=== PATIENT | female | born 1995 | race Caucasian/White ===

== ENCOUNTER 2016-10-14 19:25 | Emergency (ER) | payer OTHER ==
[~2016-10-14] VITALS: Ht 162.6 cm; Wt 54.4 kg
[~2016-10-14 19:25] MED LIST: ACET-704 PO; IBUP-1060 PO; NITR100C62 PO; PHEN-318 PO
[2016-10-14 19:31] VITALS: BP 109/66
[2016-10-14 20:10] LABS: BILIRUBIN,URINE NEGATIVE (NEG); GLUCOSE,URINE NEGATIVE (NEG); NITRITE,URINE NEGATIVE (NEG); PH,URINE 7.5; PROTEIN,URINE 30 mg/dL (NEG-TRACE)
[2016-10-14 20:20] LABS: BACTERIA,URINE FEW /HPF (0-FEW); SQUAMOUS EPITHELIAL CELL,UR MOD /LPF
--- NOTE | 2016-10-15 00:55 | ED.ADGEN ---
Past Medical History Past Medical History: No Pertinent History, UTI Past Surgical History: No Surgical History Alcohol Use: None Drug Use: None Adult General Chief Complaint Chief Complaint: FLANK PAIN HPI HPI Patient is a 20 year old woman, history of UTI, who presents to the emergency department with a complaint of several days of burning with urination and vaginal discharge vaginal itching. Patient states she is concerned that she has a recurrent urinary tract infection, states she has also had bacterial vaginosis in the past. She denies any possibility of STI exposures, any possibility of . Denies any abdominal pain, any weakness numbness or tingling, any injuries, any chest pain or shortness breath, any fevers or chills. Review of Systems Review of Systems Constitutional: Denies fever or chills. [] Eyes: Denies change in visual acuity. [] HENT: Denies nasal congestion or sore throat. [] Respiratory: Denies cough or shortness of breath. [] Cardiovascular: Denies chest pain or edema. [] GI: Denies abdominal pain, nausea, vomiting, bloody stools or diarrhea. [] : Complaining of dysuria over the past several days, also white vaginal discharge and vaginal itching. Musculoskeletal: Denies back pain or joint pain. [] Integument: Denies rash. [] Neurologic: Denies headache, focal weakness or sensory changes. [] Endocrine: Denies polyuria or polydipsia. [] Lymphatic: Denies swollen glands. [] Psychiatric: Denies depression or anxiety. [] Allergies Allergies Allergies Coded Allergies Type Severity Reaction Last Updated Verified No Known Drug Allergies 06/07/16 No Physical Exam Physical Exam Constitutional: Well developed, well nourished, no acute distress, non-toxic appearance. [] HENT: Normocephalic, atraumatic, bilateral external ears normal, oropharynx moist, no oral exudates, nose normal. [] Eyes: PERRLA, EOMI, conjunctiva normal, no discharge. [] Neck: Normal range of motion, no tenderness, supple, no stridor. [] Cardiovascular:Heart rate regular rhythm, no murmur, S1, S2, no rubs or gallops , no chest wall crepitus or tenderness [] Lungs & Thorax: Bilateral breath sounds clear to auscultation no wheezing, rhonchi, rales. No chest or crepitus or tenderness. [] Abdomen: Bowel sounds normal, soft, no tenderness, no rebound, rigidity, no guarding, no masses, no pulsatile masses. [] Skin: Warm, dry, no erythema, no rash. [] Back: No tenderness, no CVA tenderness. [] Extremities: No tenderness, no cyanosis, no clubbing, ROM intact, no edema. [] Neurologic: Alert and oriented X 3, normal motor function, normal sensory function, no focal deficits noted. [] Psychologic: Affect normal, judgement normal, mood normal. [] Current Patient Data Vital Signs Vital Signs Date Time Temp Pulse Resp B/P Pulse Ox O2 Delivery O2 Flow Rate FiO2 10/14/16 19:31 98 83 18 109/66 98 Room Air 98.0 Lab Values Laboratory Tests Test 10/14/16 18:48 10/14/16 19:26 POC Urine HCG, Qualitative Hcg negative (Negative) Urine Collection Type Unknown Urine Color Yellow Urine Clarity Clear Urine pH 7.5 Urine Specific [place] 1.020 Urine Protein 30mg/dL (NEG-TRACE) Urine Glucose (UA) Negativemg/dL (NEG) Urine Ketones (Stick) Negativemg/dL (NEG) Urine Blood Small (NEG) Urine Nitrite Negative (NEG) Urine Bilirubin Negative (NEG) Urine Urobilinogen Dipstick 2.0mg/dL (0.2 mg/dL) Urine Leukocyte Esterase Negative (NEG) Urine RBC 11-20/HPF (0-2) Urine WBC 1-4/HPF (0-4) Urine Squamous Epithelial Cells Mod/LPF Urine Bacteria Few/HPF (0-FEW) Urine Mucus Mod/LPF EKG EKG [] Radiology/Procedures Radiology/Procedures [] Course & Med Decision Making Course & Med Decision Making Pertinent Labs and Imaging studies reviewed. (See chart for details) Urine was collected from the patient to to test for status and infection. Patient instructed to prepare for pelvic examination. However, when I returned to the room to perform the pelvic examination, the patient had eloped. Urinalysis revealed no significant evidence of infection. Dragon Disclaimer Dragon Disclaimer This electronic medical record was generated, in whole or in part, using a voice recognition dictation system. Departure Impression: Primary Impression: Dysuria Additional Impression: History of elopement from health care facility Disposition: AGAINST MEDICAL ADVICE Condition: STABLE Problem Qualifiers THA OLVERA DO October 15, 2016 00:55
== END 2016-10-14 21:18 | disposition left against medical advice (07) ==
LOC: ER 19:25
DX: R30.0 Dysuria (principal); N89.8 Other specified noninflammatory disorders of vagina; Z87.440 Personal history of urinary (tract) infections
CPT/HCPCS: 81001; 81025; 99283

== ENCOUNTER 2017-09-03 18:10 | Emergency (ER) | payer OTHER ==
[2017-09-03] MEDS ORDERED: 0.9 % SODIUM CHLORIDE 10 ML DISP.SYRIN. IV (20:00)
[2017-09-03 20:09] LABS: ADD MAN DIFF? NO
[2017-09-03 20:13] LABS: BASO # 0.1 x10^3/uL (0.0-0.2); BASO % 1 % (0-3); EOS # 0.1 x10^3/uL (0.0-0.7); EOS % 1 % (0-3); HEMATOCRIT 39.8 % (36.0-47.0); HEMOGLOBIN 13.5 g/dL (12.0-15.5); LYMPH # 2.3 x10^3/uL (1.0-4.8); LYMPH % 20 % (24-48); MEAN CORPUSCULAR HEMOGLOBIN 31 pg (25-35); MEAN CORPUSCULAR HGB CONC 34 g/dL (31-37); MEAN CORPUSCULAR VOLUME 93 fL (79-100); MONO # 0.7 x10^3/uL (0.0-1.1); MONO % 6 % (0-9); NEUT # 8.4 x10^3uL (1.8-7.7); NEUT % 73 % (31-73); PLATELET COUNT 232 x10^3/uL (140-400); RED BLOOD COUNT 4.28 x10^6/uL (3.50-5.40); RED CELL DISTRIBUTION WIDTH 12.5 % (11.5-14.5); WHITE BLOOD COUNT 11.6 x10^3/uL (4.0-11.0)
[2017-09-03 20:20] LABS: ANION GAP 11 (6-14); BLOOD UREA NITROGEN 14 mg/dL (7-20); CALCIUM 8.5 mg/dL (8.5-10.1); CARBON DIOXIDE 29 mmol/L (21-32); CHLORIDE 105 mmol/L (98-107); CREATININE 0.6 mg/dL (0.6-1.0); GFR 123.9; GLUCOSE 99 mg/dL (70-99); POTASSIUM 3.5 mmol/L (3.5-5.1); SODIUM 145 mmol/L (136-145)
[2017-09-03 20:26] LABS: ALK PHOS 81 U/L (46-116); ALT (SGPT) 18 U/L (14-59); AST (SGOT) 11 U/L (15-37); DIRECT BILIRUBIN < 0.1 mg/dL (0.0-0.2); LIPASE 118 U/L (73-393); TOTAL BILIRUBIN 0.4 mg/dL (0.2-1.0); TOTAL PROTEIN 7.3 g/dL (6.4-8.2)
[2017-09-03 20:27] LABS: BILIRUBIN,URINE SMALL (NEG); CLARITY,URINE CLEAR; COLOR,URINE RED; GLUCOSE,URINE NEGATIVE (NEG); NITRITE,URINE POSITIVE (NEG); PROTEIN,URINE 100 mg/dL (NEG-TRACE)
[2017-09-03] MEDS: fentaNYL PF VIAL 100 MCG/2 ML VIAL IV (20:43)
[2017-09-03] MEDS: KETOROLAC 30 MG/ML INJ. IV (20:44)
[2017-09-03] MEDS: IV NORMAL SALINE 1000ML BAG 1,000 ML IV (20:44)
[2017-09-03 21:16] LABS: SQUAMOUS EPITHELIAL CELL,UR MOD /LPF
[2017-09-03 21:19] LABS: RBC,URINE 0 /HPF (0-2)
[2017-09-03 21:20] LABS: BACTERIA,URINE 0 /HPF (0-FEW)
== END 2017-09-03 21:51 | disposition home or self-care (01) ==
LOC: ER 18:10
DX: N39.0 Urinary tract infection, site not specified (principal)
CPT/HCPCS: 36415; 80048; 80076; 81001; 83690; 85025; 87086; 96361; 96374; 96375; 99284-25; J1885; J3010; J7030

== ENCOUNTER 2017-11-17 15:43 | Emergency (ER) | payer OTHER | END 2017-11-17 16:14 | disposition home or self-care (01) | LOC: ER 15:43 | DX: B35.4 Tinea corporis (principal) | CPT/HCPCS: 99283 ==

== ENCOUNTER 2019-03-14 15:32 | Emergency (ER) | payer MEDICAID, OTHER ==
[~2019-03-14] VITALS: Ht 162.6 cm; Wt 64.4 kg
[~2019-03-14 15:32] MED LIST changes: +HYDR-2761 PO; +NAPR-683 PO; +TRIA15CR TP
[2019-03-14 16:09] LABS: BILIRUBIN,URINE NEGATIVE (NEG); CLARITY,URINE CLEAR; COLOR,URINE YELLOW; NITRITE,URINE NEGATIVE (NEG); PROTEIN,URINE NEGATIVE (NEG-TRACE)
[2019-03-14 16:15] LABS: BASO % 0 % (0-3); EOS % 1 % (0-3); HEMATOCRIT 31.6 % (36.0-47.0); HEMOGLOBIN 10.9 g/dL (12.0-15.5); LYMPH % 22 % (24-48); MEAN CORPUSCULAR HEMOGLOBIN 32 pg (25-35); MEAN CORPUSCULAR HGB CONC 35 g/dL (31-37); MEAN CORPUSCULAR VOLUME 94 fL (79-100); MONO # 0.7 x10^3/uL (0.0-1.1); MONO % 8 % (0-9); NEUT # 6.6 x10^3/uL (1.8-7.7); NEUT % 70 % (31-73); PLATELET COUNT 174 x10^3/uL (140-400); RED BLOOD COUNT 3.38 x10^6/uL (3.50-5.40); RED CELL DISTRIBUTION WIDTH 13.4 % (11.5-14.5); WHITE BLOOD COUNT 9.5 x10^3/uL (4.0-11.0)
[2019-03-14 16:17] LABS: SQUAMOUS EPITHELIAL CELL,UR MOD /LPF
[2019-03-14 16:18] LABS: BACTERIA,URINE MODERATE /HPF (0-FEW)
[2019-03-14 16:22] LABS: CALCIUM 8.6 mg/dL (8.5-10.1); CREATININE 0.5 mg/dL (0.6-1.0); GFR 150.3; POTASSIUM 3.5 mmol/L (3.5-5.1)
--- NOTE | 2019-03-14 16:58 | RAD ---
EXAM: Obstetrics sonogram. HISTORY: Vaginal bleeding. TECHNIQUE: Sonographic imaging of the gravid uterus was performed. COMPARISON: None. FINDINGS: There is a single intrauterine fetus in cephalic presentation with a heart rate of 145 beats per minute. The cervix is closed and measures 5.7 cm in length. There is a grade 1 anterolisthesis and without evidence of placenta previa. The amniotic fluid index is normal. There is normal body motion. The biparietal diameter is 3.71 cm, corresponding with 17 weeks and 2 days. The heads are currently is 14.15 cm, corresponding to 17 weeks and 3 days. The abdominal circumference is 11.55 cm, corresponding with 17 weeks and 2 days. The femoral length is 2.44 cm, corresponding with 17 weeks and 3 days. The estimated gestational age patient combined ultrasound measurements is 17 weeks and 3 days and the estimated due date is 08/19/2019. The estimated weight is 191 g. IMPRESSION: 1. Single intrauterine fetus with an estimated gestational age based on ultrasound measurements of 17 weeks and 3 days. There is a normal heart rate and normal body motion. 2. Note is made that a formal anatomy survey at approximately 18-20 weeks gestational age is recommended. The anatomy is not formally assessed on this exam. Electronically signed by: Annamaria Rdz MD (03/14/2019 4:55 PM) [facility]
--- NOTE | 2019-03-14 17:20 | PHYS DOC ---
Past Medical History Past Medical History: No Pertinent History, UTI Past Surgical History: No Surgical History Alcohol Use: None Drug Use: None Adult General Chief Complaint Chief Complaint: VAGINAL BLEEDING HPI HPI Patient is a 23 year old female who presents to the ER with complaints of vaginal bleeding that began today. Pt states she is currently 17 weeks , G3, P2, A0. Her EDC is 08/27/19. She reports that she has only used one pad since the onset of the bleeding. She denies any dysuria or increased urinary frequency, she denies any irregular vaginal discharge prior to the onset of the bleeding. She currently denies any pain. Review of Systems Review of Systems Constitutional: Denies fever or chills [] Eyes: Denies change in visual acuity, redness, or eye pain [] HENT: Denies nasal congestion or sore throat [] Respiratory: Denies cough or shortness of breath [] Cardiovascular: No additional information not addressed in HPI [] GI: Denies abdominal pain, nausea, vomiting, or diarrhea [] : see HPI Musculoskeletal: Denies back pain or joint pain [] Integument: Denies rash or skin lesions [] Neurologic: Denies headache Endocrine: Denies polyuria or polydipsia [] Complete systems were reviewed and found to be within normal limits, except as documented in this note. Allergies Allergies Allergies Coded Allergies Type Severity Reaction Last Updated Verified No Known Drug Allergies 06/07/16 No Physical Exam Physical Exam Constitutional: Well developed, well nourished, no acute distress, non-toxic appearance. [] HENT: Normocephalic, atraumatic, bilateral external ears normal, nose normal. [] Eyes: PERRLA, EOMI, conjunctiva normal, no discharge. [] Neck: Normal range of motion, no stridor. [] Cardiovascular:Heart rate regular rhythm, no murmur [] Lungs & Thorax: Bilateral breath sounds clear to auscultation [] Abdomen: Bowel sounds normal, soft, no tenderness, no masses, no pulsatile masses. [] Skin: Warm, dry, no erythema, no rash. [] Back: No tenderness Extremities: No cyanosis, no clubbing, ROM intact, no edema. [] Neurologic: Alert and oriented X 3, no focal deficits noted. [] Psychologic: Affect normal, judgement normal, mood normal. [] Current Patient Data Vital Signs Vital Signs Date Time Temp Pulse Resp B/P (MAP) Pulse Ox O2 Delivery O2 Flow Rate FiO2 03/14/19 15:45 98.1 79 17 112/66 (81) 98 Room Air 98.1 Lab Values Laboratory Tests Test 03/14/19 15:39 03/14/19 16:04 Urine Collection Type Unknown Urine Color Yellow Urine Clarity Clear Urine pH 6.0 Urine Specific [place] 1.020 Urine Protein Negative mg/dL (NEG-TRACE) Urine Glucose (UA) Negative mg/dL (NEG) Urine Ketones (Stick) Negative mg/dL (NEG) Urine Blood Large (NEG) Urine Nitrite Negative (NEG) Urine Bilirubin Negative (NEG) Urine Urobilinogen Dipstick 1.0 mg/dL (0.2 mg/dL) Urine Leukocyte Esterase Moderate (NEG) Urine RBC 1-2 /HPF (0-2) Urine WBC 5-10 /HPF (0-4) Urine Squamous Epithelial Cells Mod /LPF Urine Bacteria Moderate /HPF (0-FEW) Urine Mucus Mod /LPF White Blood Count 9.5 x10^3/uL (4.0-11.0) Red Blood Count 3.38 x10^6/uL (3.50-5.40) L Hemoglobin 10.9 g/dL (12.0-15.5) L Hematocrit 31.6 % (36.0-47.0) L Mean Corpuscular Volume 94 fL (79-100) Mean Corpuscular Hemoglobin 32 pg (25-35) Mean Corpuscular Hemoglobin Concent 35 g/dL (31-37) Red Cell Distribution Width 13.4 % (11.5-14.5) Platelet Count 174 x10^3/uL (140-400) Neutrophils (%) (Auto) 70 % (31-73) Lymphocytes (%) (Auto) 22 % (24-48) L Monocytes (%) (Auto) 8 % (0-9) Eosinophils (%) (Auto) 1 % (0-3) Basophils (%) (Auto) 0 % (0-3) Neutrophils # (Auto) 6.6 x10^3/uL (1.8-7.7) Lymphocytes # (Auto) 2.0 x10^3/uL (1.0-4.8) Monocytes # (Auto) 0.7 x10^3/uL (0.0-1.1) Eosinophils # (Auto) 0.0 x10^3/uL (0.0-0.7) Basophils # (Auto) 0.0 x10^3/uL (0.0-0.2) Maternal Serum HCG Beta Subunit 00727 mIU/mL (0-5) H Sodium Level 138 mmol/L (136-145) Potassium Level 3.5 mmol/L (3.5-5.1) Chloride Level 104 mmol/L (98-107) Carbon Dioxide Level 27 mmol/L (21-32) Anion Gap 7 (6-14) Blood Urea Nitrogen 8 mg/dL (7-20) Creatinine 0.5 mg/dL (0.6-1.0) L Estimated GFR (Cockcroft-Gault) 150.3 Glucose Level 97 mg/dL (70-99) Calcium Level 8.6 mg/dL (8.5-10.1) Laboratory Tests 03/14/19 16:04 Laboratory Tests 03/14/19 16:04 EKG EKG [] Radiology/Procedures Radiology/Procedures PROCEDURE: PREG MORE THAN OR EQ TO 14 WKS EXAM: Obstetrics sonogram. HISTORY: Vaginal bleeding. TECHNIQUE: Sonographic imaging of the gravid uterus was performed. COMPARISON: None. FINDINGS: There is a single intrauterine fetus in cephalic presentation with a heart rate of 145 beats per minute. The cervix is closed and measures 5.7 cm in length. There is a grade 1 anterolisthesis and without evidence of placenta previa. The amniotic fluid index is normal. There is normal body motion. The biparietal diameter is 3.71 cm, corresponding with 17 weeks and 2 days. The heads are currently is 14.15 cm, corresponding to 17 weeks and 3 days. The abdominal circumference is 11.55 cm, corresponding with 17 weeks and 2 days. The femoral length is 2.44 cm, corresponding with 17 weeks and 3 days. The estimated gestational age patient combined ultrasound measurements is 17 weeks and 3 days and the estimated due date is 08/19/2019. The estimated weight is 191 g. IMPRESSION: 1. Single intrauterine fetus with an estimated gestational age based on ultrasound measurements of 17 weeks and 3 days. There is a normal heart rate and normal body motion. 2. Note is made that a formal anatomy survey at approximately 18-20 weeks gestational age is recommended. The anatomy is not formally assessed on this exam. [] Course & Med Decision Making Course & Med Decision Making Pertinent Labs and Imaging studies reviewed. (See chart for details) Dx: vaginal bleeding in , UTI 1721-Spoke with Dr. Casanova and advised of U/S and lab findings. Per Dr. Casanova have the patient stay on bed rest and pelvic rest until follow up with Dr. Roy this week, call in the morning to schedule follow up. Dragon Disclaimer Dragon Disclaimer This electronic medical record was generated, in whole or in part, using a voice recognition dictation system. Departure Departure Impression: Primary Impression: Vaginal bleeding before 22 weeks gestation Additional Impression: UTI (urinary tract infection) in in second trimester Disposition: HOME, SELF-CARE Condition: STABLE Referrals: NO PCP (PCP) CHETAN ROY MD Patient Instructions: Vaginal Bleeding During , Second Trimester Additional Instructions: Pelvic rest and bedrest until follow up with Dr. Roy in the office. Call in the morning to schedule follow up appointment. Return to the ER if symptoms worsen. Scripts Cephalexin (KEFLEX) 500 Mg Capsule 1 CAP PO BID for 7 Days, #14 CAP 0 Refills Prov: LINDSAY ESCALANTE PRODUCT ACCOUNTANT 03/14/19 Problem Qualifiers LINDSAY ESCALANTE PRODUCT ACCOUNTANT Mar 14, 2019 17:20
[2019-03-14 17:30] VITALS: BP 109/75
[2019-03-14] MEDS ORDERED: CEPH-264 PO (17:38)
== END 2019-03-14 17:52 | disposition home or self-care (01) ==
LOC: ER 15:32
DX: O23.42 Unspecified infection of urinary tract in pregnancy, second trimester (principal); Z3A.22 22 weeks gestation of pregnancy
CPT/HCPCS: 36415; 76805; 80048; 81001; 84702; 85025; 87086; 99285-25

== ENCOUNTER 2019-03-22 17:05 | Emergency (ER) | payer MEDICAID ==
[~2019-03-22] VITALS: Ht 162.6 cm; Wt 66.2 kg
[~2019-03-22 17:05] MED LIST changes: +CEPH-264 PO
[2019-03-22 17:47] LABS: BILIRUBIN,URINE NEGATIVE (NEG); CLARITY,URINE CLEAR; COLOR,URINE YELLOW; NITRITE,URINE NEGATIVE (NEG); PROTEIN,URINE 30 mg/dL (NEG-TRACE)
[2019-03-22 17:52] LABS: BARBITURATES NEG (NEG); BENZODIAZEPINES NEG (NEG); CANNABINOIDS NEG (NEG); COCAINE NEG (NEG); METHADONE NEG (NEG); OPIATES NEG (NEG); PHENCYCLIDINE NEG (NEG)
[2019-03-22 17:55] LABS: AMPHETAMINE/METHAMPHETAMINE NEG (NEG)
[2019-03-22 18:07] LABS: BACTERIA,URINE FEW /HPF (0-FEW)
[2019-03-22 18:08] LABS: SQUAMOUS EPITHELIAL CELL,UR OCC /LPF
[2019-03-22 18:18] LABS: BASO % 0 % (0-3); EOS # 0.1 x10^3/uL (0.0-0.7); EOS % 1 % (0-3); HEMOGLOBIN 11.3 g/dL (12.0-15.5); LYMPH # 2.5 x10^3/uL (1.0-4.8); LYMPH % 21 % (24-48); MEAN CORPUSCULAR HEMOGLOBIN 33 pg (25-35); MEAN CORPUSCULAR HGB CONC 35 g/dL (31-37); MEAN CORPUSCULAR VOLUME 92 fL (79-100); MONO % 8 % (0-9); NEUT # 8.2 x10^3/uL (1.8-7.7); NEUT % 70 % (31-73); PLATELET COUNT 231 x10^3/uL (140-400); RED BLOOD COUNT 3.46 x10^6/uL (3.50-5.40); RED CELL DISTRIBUTION WIDTH 13.6 % (11.5-14.5); WHITE BLOOD COUNT 11.8 x10^3/uL (4.0-11.0)
[2019-03-22 18:27] LABS: CALCIUM 9.1 mg/dL (8.5-10.1); CREATININE 0.5 mg/dL (0.6-1.0); GFR 150.3; POTASSIUM 3.5 mmol/L (3.5-5.1)
[2019-03-22 18:35] LABS: ALBUMIN 3.6 g/dL (3.4-5.0); ALBUMIN/GLOBULIN RATIO 0.9 (1.0-1.7); TOTAL BILIRUBIN 0.3 mg/dL (0.2-1.0); TOTAL PROTEIN 7.7 g/dL (6.4-8.2)
--- NOTE | 2019-03-22 19:43 | PHYS DOC ---
Past Medical History Past Medical History: No Pertinent History, UTI Past Surgical History: No Surgical History Alcohol Use: None Drug Use: None Adult General Chief Complaint Chief Complaint: VAGINAL BLEEDING [employer] HPI Patient is a 23 year old female 3 para 2 who presents to the ED today complaining of vaginal bleeding in . Patient states the vaginal bleeding began on March 14, 2019 which is roughly 8 days ago. She states she has been having some episodes of brown bleeding which occasionally turns into red blood, she states she does not soak a feminine pad per day. Patient denies any abdominal pain. Denies any nausea or vomiting. She states she was seen in the ED on March 14, 2019, she states they did lab work as well as ultrasound and sent her to follow-up with an SOFTWARE PACKAGING ENGINEER. Patient states she was seen by the SOFTWARE PACKAGING ENGINEER's physician carpenter assistant installer who did heart tones and send her back home a couple days ago. She states the bleeding has continued, she states she called the SOFTWARE PACKAGING ENGINEER's office and she was instructed to come to the ED. she also reports she was diagnosed with UTI and was sent home with cephalexin from the ED but her SOFTWARE PACKAGING ENGINEER switched her from cephalexin to a different antibiotics that she has not picked yet. Review of Systems Review of Systems Constitutional: Denies fever or chills [] Eyes: Denies change in visual acuity, redness, or eye pain [] HENT: Denies nasal congestion or sore throat [] Respiratory: Denies cough or shortness of breath [] Cardiovascular: No additional information not addressed in [employer] [] GI: Reports vaginal bleeding in . Denies abdominal pain, nausea, vomiting, bloody stools or diarrhea [] : Denies dysuria or hematuria [] Musculoskeletal: Denies back pain or joint pain [] Integument: Denies rash or skin lesions [] Neurologic: Denies headache, focal weakness or sensory changes [] All other systems were reviewed and found to be within normal limits, except as documented in this note. Allergies Allergies Allergies Coded Allergies Type Severity Reaction Last Updated Verified No Known Drug Allergies 06/07/16 No Physical Exam Physical Exam Constitutional: Well developed, well nourished, no acute distress, non-toxic appearance. [] HENT: Normocephalic, atraumatic, bilateral external ears normal, oropharynx moist, no oral exudates, nose normal. [] Eyes: PERRLA, EOMI, conjunctiva normal, no discharge. [] Neck: Normal range of motion, no tenderness, supple, no stridor. [] Cardiovascular:Heart rate regular rhythm, no murmur [] Lungs & Thorax: Bilateral breath sounds clear to auscultation [] Abdomen: Bowel sounds normal, soft, no tenderness, no masses, no pulsatile masses. [] Pelvic exam External pelvic appears normal, cervix is visualized, closed, no CMT, no adnexal tenderness, trace amount of brownish discharge in the vaginal vault Skin: Warm, dry, no erythema, no rash. [] Back: No tenderness, no CVA tenderness. [] Extremities: No tenderness, no cyanosis, no clubbing, ROM intact, no edema. [] Neurologic: Alert and oriented X 3, normal motor function, normal sensory function, no focal deficits noted. [] Psychologic: Affect normal, judgement normal, mood normal. [] Current Patient Data Vital Signs Vital Signs Date Time Temp Pulse Resp B/P (MAP) Pulse Ox O2 Delivery O2 Flow Rate FiO2 03/22/19 17:36 98.6 87 16 130/76 (94) 98 Room Air 98.6 Lab Values Laboratory Tests Test 03/22/19 17:30 03/22/19 18:12 Urine Color Yellow Urine Clarity Clear Urine pH 6.0 Urine Specific [place] 1.025 Urine Protein 30 mg/dL (NEG-TRACE) Urine Glucose (UA) Negative mg/dL (NEG) Urine Ketones (Stick) Negative mg/dL (NEG) Urine Blood Large (NEG) Urine Nitrite Negative (NEG) Urine Bilirubin Negative (NEG) Urine Urobilinogen Dipstick 1.0 mg/dL (0.2 mg/dL) Urine Leukocyte Esterase Small (NEG) Urine RBC 11-20 /HPF (0-2) Urine WBC 5-10 /HPF (0-4) Urine Squamous Epithelial Cells Occ /LPF Urine Bacteria Few /HPF (0-FEW) Urine Mucus Mod /LPF Urine Opiates Screen Neg (NEG) Urine Methadone Screen Neg (NEG) Urine Barbiturates Neg (NEG) Urine Phencyclidine Screen Neg (NEG) Urine Amphetamine/Methamphetamine Neg (NEG) Urine Benzodiazepines Screen Neg (NEG) Urine Cocaine Screen Neg (NEG) Urine Cannabinoids Screen Neg (NEG) Urine Ethyl Alcohol Neg (NEG) White Blood Count 11.8 x10^3/uL (4.0-11.0) H Red Blood Count 3.46 x10^6/uL (3.50-5.40) L Hemoglobin 11.3 g/dL (12.0-15.5) L Hematocrit 32.0 % (36.0-47.0) L Mean Corpuscular Volume 92 fL (79-100) Mean Corpuscular Hemoglobin 33 pg (25-35) Mean Corpuscular Hemoglobin Concent 35 g/dL (31-37) Red Cell Distribution Width 13.6 % (11.5-14.5) Platelet Count 231 x10^3/uL (140-400) Neutrophils (%) (Auto) 70 % (31-73) Lymphocytes (%) (Auto) 21 % (24-48) L Monocytes (%) (Auto) 8 % (0-9) Eosinophils (%) (Auto) 1 % (0-3) Basophils (%) (Auto) 0 % (0-3) Neutrophils # (Auto) 8.2 x10^3/uL (1.8-7.7) H Lymphocytes # (Auto) 2.5 x10^3/uL (1.0-4.8) Monocytes # (Auto) 1.0 x10^3/uL (0.0-1.1) Eosinophils # (Auto) 0.1 x10^3/uL (0.0-0.7) Basophils # (Auto) 0.0 x10^3/uL (0.0-0.2) Maternal Serum HCG Beta Subunit 18531 mIU/mL (0-5) H Sodium Level 141 mmol/L (136-145) Potassium Level 3.5 mmol/L (3.5-5.1) Chloride Level 103 mmol/L (98-107) Carbon Dioxide Level 27 mmol/L (21-32) Anion Gap 11 (6-14) Blood Urea Nitrogen 7 mg/dL (7-20) Creatinine 0.5 mg/dL (0.6-1.0) L Estimated GFR (Cockcroft-Gault) 150.3 BUN/Creatinine Ratio 14 (6-20) Glucose Level 82 mg/dL (70-99) Calcium Level 9.1 mg/dL (8.5-10.1) Total Bilirubin 0.3 mg/dL (0.2-1.0) Aspartate Amino Transferase (AST) 12 U/L (15-37) L Alanine Aminotransferase (ALT) 13 U/L (14-59) L Alkaline Phosphatase 87 U/L (46-116) Total Protein 7.7 g/dL (6.4-8.2) Albumin 3.6 g/dL (3.4-5.0) Albumin/Globulin Ratio 0.9 (1.0-1.7) L Ethyl Alcohol Level < 10 mg/dL (0-10) Laboratory Tests 03/22/19 18:12 Laboratory Tests 03/22/19 18:12 EKG EKG [] Radiology/Procedures Radiology/Procedures []PROCEDURE: OB LIMITED Exam: Ultrasound OB limited Indication: Vaginal bleeding in Technique: Real-time grayscale and color Doppler images of the pelvis were obtained by the department district plant engineer. Comparisons: 03/14/2019 FINDINGS: There is a single live intrauterine gestation with heart rate measured at 155 bpm. measurements as follows: BPD: 4.2 cm corresponding to 18 weeks 3 days HC: 15.5 cm corresponding to 18 weeks 3 days AC: 13.2 cm corresponding to 18 weeks 5 days FL: 2.8 cm corresponding to 18 weeks 4 days. Cervical length measured at 3.8 cm. Placenta is fundal and appears unremarkable. IMPRESSION: 1. Single live intrauterine gestation of 18 weeks 4 days by today's ultrasound. Correlate with LMP. 2. Dedicated survey is recommended in the nonemergent setting, if not ordered and performed as routine care. Electronically signed by: Valentín Briggs MD (03/22/2019 7:42 PM) [facility] DICTATED and SIGNED BY: VALENTÍN BRIGGS MD DATE: 03/22/191941 Course & Med Decision Making Course & Med Decision Making Pertinent Labs and Imaging studies reviewed. (See chart for details) This is a 23-year-old female patient 3 para 2 presented to the ED today with vaginal bleeding in that began 8 days ago. Patient was seen in the ED at the onset of her symptoms, had a negative workup and was sent home to follow up with the SOFTWARE PACKAGING ENGINEER, she followed up with the SOFTWARE PACKAGING ENGINEER and they did heart tones in the clinic a couple days ago and sent her back home. She presents today complaining of vaginal bleeding. She states the bleeding has not increased but the blood colors change from brown to red and sometimes back to Brown. She also states she was diagnosed with UTI, her SOFTWARE PACKAGING ENGINEER called in Rx for UTI for her but she has not picked it up. Urine analysis is noted for UTI, CBC with a WBC of 11.8, hemoglobin 11.3, hematocrit 32.0. Beta hcg 06445 Blood group O+ OB ultrasound noted for IUP 8 weeks 4 days heart rate 155. Patient is requesting to be discharged before we contact the SOFTWARE PACKAGING ENGINEER, she states her ride is outside and she cannot wait any longer. She requested a note for work which was provided. Bedrest recommended. Instructed to follow-up with the SOFTWARE PACKAGING ENGINEER as soon as possible and also to order picker/assembler the prescription for UTI medication that she has at the pharmacy. Dragon Disclaimer Dragon Disclaimer This electronic medical record was generated, in whole or in part, using a voice recognition dictation system. Departure Departure Impression: Primary Impression: Vaginal bleeding before 22 weeks gestation Additional Impression: Urinary tract infection Disposition: 01 HOME, SELF-CARE Condition: STABLE Referrals: NO PCP (PCP) CHETAN SADLER MD follow up in 1-2 days Patient Instructions: Threatened Miscarriage, [id number] Additional Instructions: You were evaluated in the emergency room for vaginal bleeding in we recommend you maintain bed rest and pelvic rest, this includes no strenuous a ctivities, no lifting or pulling anything more than 3lbs. No sexual intercourse. No vaginal insertion. Ensure you follow-up with your SOFTWARE PACKAGING ENGINEER as soon as possible, pick the prescription you have at the pharmacy for antibiotics. Come back to the Ed at any point symptoms worsen. Problem Qualifiers Additional Impression: Urinary tract infection Urinary tract infection type: site unspecified Hematuria presence: without hematuria Qualified Codes: N39.0 - Urinary tract infection, site not specified FELICIANO GARCIA APRN Mar 22, 2019 19:43
[2019-03-22 20:00] VITALS: BP 124/80
== END 2019-03-22 20:18 | disposition home or self-care (01) ==
LOC: ER 17:05
DX: O23.42 Unspecified infection of urinary tract in pregnancy, second trimester (principal); Z3A.18 18 weeks gestation of pregnancy
CPT/HCPCS: 36415; 76815; 80053; 80307; 81001; 84702; 85025; 87086; 99285; G0480